=== PATIENT | female | born 1970 | race Caucasian/White ===

== ENCOUNTER 2024-03-02 05:50 | Inpatient (IN) | payer BC ==
[~2024-03-02] VITALS: Ht 185.4 cm; Wt 88.0 kg
[2024-03-02] VITALS (33 sets, daily range): BP systolic 99–166; BP diastolic 48–99; PULSE 63–97; RESP 0–19; TEMP 97.5–98.8; O2SAT 93–100
[~2024-03-02 05:50] MED LIST: NO HOME MEDS
[2024-03-02] MEDS ORDERED: ketorolac trometh 30MG/ML vial 30 MG/ML VIAL ONE (06:02)
[2024-03-02] MEDS ORDERED: BUPIVACAINE/MELOXICAM 14 ML VIAL IL ONE (06:03)
[2024-03-02] MEDS ORDERED: tranexamic acid 100mg/ml inj. ONE (06:03)
[2024-03-02] MEDS ORDERED: ROPIVAcaine 0.5% (5mg/ml) 30ml vial ONE (06:03)
[2024-03-02] MEDS: famotidine 20mg tablet PO ONE (06:23)
[2024-03-02] MEDS: ringers solution, lacted 1,000 ML IV SCH ×2 (06:24→08:41)
[2024-03-02] MEDS: tranexamic acid 650mg tablet PO ONE (06:24)
[2024-03-02] MEDS ORDERED: fentaNYL /PF 50mcg/ml 5ml ampule ONE (06:34)
[2024-03-02] MEDS ORDERED: MIDAZolam 1 MG/ML 5ML VIAL ONE (06:34)
[2024-03-02] MEDS ORDERED: dexamethasone sod phosphate 4mg/ml inj. ONE (06:35)
[2024-03-02] MEDS ORDERED: LIDOcaine 2% (20mg/ml) 5ml vial ONE (06:35)
[2024-03-02] MEDS ORDERED: sevoflurane 250ml liquid IH ONE (06:35)
[2024-03-02] MEDS ORDERED: propofol inj 20 ML IV ONE ×2 (06:35→07:05)
[2024-03-02 06:37] LABS: BASOPHILS # (AUTO) 0.1 X10'3 (0-0.2); BASOPHILS % (AUTO) 0.7 % (0-1); EOSINOPHILS # (AUTO) 0.3 X10'3 (0-0.9); EOSINOPHILS % (AUTO) 3.2 % (0-6); LYMPHOCYTES # (AUTO) 1.5 X10'3 (1.1-4.8); LYMPHOCYTES % (AUTO) 19.4 % (21-51); MEAN CORPUSCULAR HEMOGLOBIN 29.8 PG (27.0-31.0); MEAN CORPUSCULAR VOLUME 87.7 FL (78-98); MEAN PLATELET VOLUME 7.3 FL (7.4-10.4); MONOCYTES # (AUTO) 0.5 X10'3 (0-0.9); MONOCYTES % (AUTO) 5.9 % (2-12); NEUTROPHILS # (AUTO) 5.5 X10'3 (1.8-7.7); NEUTROPHILS % (AUTO) 70.8 % (42-75); PRE OP HEMATOCRIT 39.7 % (35.0-45.0); PRE OP HEMOGLOBIN 13.5 g/dL (12.0-16.0); PRE OP PLATELET COUNT 323 X10'3 (140-440); PRE OP WHITE BLOOD COUNT 7.8 10'3 (4.8-10.8); RED BLOOD COUNT 4.52 X10'6 (4.20-5.60); RED CELL DISTRIBUTION WIDTH 12.9 % (11.5-14.5)
[2024-03-02] MEDS ORDERED: ondansetron/PF 4mg/2ml inj ONE (06:50)
[2024-03-02 06:55] LABS: ALBUMIN 3.8 G/DL (3.4-5.0); ALKALINE PHOSPHATASE 117 IU/L (46-116); BLOOD UREA NITROGEN 17 MG/DL (7-18); BUN/CREATININE RATIO 19.8 (10.0-20.0); CALCIUM 9.3 MG/DL (8.5-10.1); CHLORIDE 107 MMOL/L (99-107); CREATININE 0.86 MG/DL (0.40-0.90); PRE OP ALT 26 U/L (30-65); PRE OP ANION GAP 9 (8-16); PRE OP AST 16 U/L (10-37); PRE OP BILIRUB, TOTAL 0.4 MG/DL (0.0-1.0); PRE OP GLUCOSE 109 MG/DL (70-104); PRE OP POTASSIUM 3.8 MMOL/L (3.4-5.1); PRE OP SODIUM 144 MMOL/L (135-145); TOTAL CARBON DIOXIDE 28.4 MMOL/L (24-32); TOTAL PROTEIN 7.6 G/DL (6.4-8.2); eCRCL 88 ML/MIN; eGFR 69 ML/MIN
[2024-03-02] MEDS ORDERED: vancomycin 1,000mg inj ONE ×4 (06:55→07:20)
[2024-03-02] MEDS ORDERED: ceFAZolin 1000mg inj ONE ×2 (06:55→07:09)
[2024-03-02] MEDS ORDERED: BUPIVACAINE liposomal/PF 13.3 MG/ML vial IM ONE (06:58)
[2024-03-02] MEDS ORDERED: BUPIVAcaine 0.5% inj/PF 30 ML ONE (06:58)
[2024-03-02] MEDS ORDERED: OXYC-658 PO (07:07)
[2024-03-02] MEDS ORDERED: IBUP-1985 PO (07:08)
[2024-03-02] MEDS ORDERED: acetaminophen 1,000mg/100ml IV 100 ML IV ONE (07:22)
[2024-03-02] MEDS: ROPIVAcaine 0.5% (5mg/ml) 30ml vial IJ ONE (07:30)
[2024-03-02] MEDS ORDERED: hydrALAZINE 20mg/ml inj. IV PRN (07:50)
[2024-03-02] MEDS ORDERED: morphine 2 MG/ML inj. syringe IV PRN (07:50)
[2024-03-02] MEDS ORDERED: ondansetron/PF 4mg/2ml inj IV PRN ×2 (07:50→08:30)
[2024-03-02] MEDS ORDERED: labetalol 20mg/4ml (5mg/ml) syringe IV PRN (07:50)
[2024-03-02] MEDS ORDERED: fentaNYL/PF 50MCG/1 ML 2ML syringe IV PRN ×2 (07:50)
[2024-03-02 08:18] LABS: APPEARANCE,SYNOVIAL FLUID CLOUDY; COLOR,SYNOVIAL FLUID RED; SYN WBC 975 /CU MM (0-200)
[2024-03-02 08:19] LABS: LYMPHOCYTES,SYNOVIAL FLUID 6 % (0-75); MONOCYTES,SYNOVIAL FLUID 10 % (0-0); NEUTROPHILS,SYNOVIAL FLUID 84 % (0-25); SYN RBC 13775 /CU MM (0)
[2024-03-02] MEDS ORDERED: naloxone 0.4 mg/ml inj IV PRN (08:30)
[2024-03-02] MEDS ORDERED: bisacodyl 10mg suppository rectal RC PRN (08:30)
[2024-03-02] MEDS ORDERED: diphenhydrAMINE 25mg capsule PO PRN (08:30)
[2024-03-02] MEDS ORDERED: magnesium hydroxide 30ml (MOM) UD suspension PO PRN (08:30)
[2024-03-02] MEDS ORDERED: acetaminophen 325mg tablet PO PRN (08:30)
[2024-03-02] MEDS ORDERED: HYDROmorphone inj. 0.5 MG/0.5 ML DISP.SYRIN IV PRN (08:30)
[2024-03-02] MEDS: morphine 4 MG/ML inj SYRINge IV PRN (08:49)
[2024-03-02] MEDS: oxyCODONE IR 5mg (immed. release) tablet PO PRN ×2 (11:47→16:16)
[2024-03-02] MEDS ORDERED: non-formulary drug (Ibuprofen 1 TAB) PO SCH (13:00)
[2024-03-02] MEDS: potassium cl 20mEq in 1/2 NS 1,000 ML IV SCH (15:35)
[2024-03-02] MEDS: acetaminophen 325mg tablet PO SCH (15:36)
[2024-03-02] MEDS: ceFAZolin/D5W- 1GM premix 50 ML IV SCH (16:15)
[2024-03-02] MEDS: sennosides 8.6mg tablet PO SCH (21:30)
[2024-03-02] MEDS: VANCOMYCIN 1GM 200ML H20 (PEG) 200 ML IV SCH (21:31)
[2024-03-03] VITALS (8 sets, daily range): BP systolic 126–150; BP diastolic 76–88; PULSE 63–76; RESP 15–16; TEMP 97.8–98.6; O2SAT 93–99
[2024-03-03 07:27] LABS: BASOPHILS % (AUTO) 0.6 % (0-1); EOSINOPHILS # (AUTO) 0.2 X10'3 (0-0.9); HEMATOCRIT 33.5 % (35.0-45.0); HEMOGLOBIN 11.4 g/dl (12.0-16.0); LYMPHOCYTES # (AUTO) 2.1 X10'3 (1.1-4.8); LYMPHOCYTES % (AUTO) 29.3 % (21-51); MEAN CORPUSCULAR HEMOGLOBIN 29.9 PG (27.0-31.0); MEAN CORPUSCULAR HGB CONC 33.8 g/dL (33.0-36.5); MEAN CORPUSCULAR VOLUME 88.4 FL (78-98); MEAN PLATELET VOLUME 7.3 FL (7.4-10.4); MONOCYTES # (AUTO) 0.4 X10'3 (0-0.9); MONOCYTES % (AUTO) 5.8 % (2-12); NEUTROPHILS # (AUTO) 4.3 X10'3 (1.8-7.7); NEUTROPHILS % (AUTO) 61.3 % (42-75); PLATELET COUNT 278 X10'3 (140-440); RED CELL DISTRIBUTION WIDTH 12.9 % (11.5-14.5)
[2024-03-03 07:44] LABS: CHLORIDE 106 MMOL/L (99-107); POTASSIUM 3.7 MMOL/L (3.5-5.1); SODIUM 140 MMOL/L (135-145)
[2024-03-03 07:45] LABS: ANION GAP 9 (8-16); TOTAL CARBON DIOXIDE 25.5 MMOL/L (24-32)
[2024-03-03] MEDS: aspirin 325mg tablet PO SCH (07:47)
[2024-03-03] MEDS: HYDROmorphone 1 mg/ml syringe IV PRN (07:48)
[2024-03-03] MEDS ORDERED: VANCOMYCIN 1GM 200ML H20 (PEG) 200 ML IV SCH (10:00)
[2024-03-03] MEDS: vancomycin/NS 1 GM ADD-VANTAGE 250 ML IV SCH (10:58)
[2024-03-03] MEDS: ceFAZolin/D5W- 1GM premix 50 ML IV SCH (16:16)
[2024-03-03] MEDS: celeCOXIB 100mg capsule PO SCH (21:16)
[2024-03-03] MEDS: diphenhydrAMINE 25mg capsule PO PRN (21:16)
[2024-03-04 06:00] VITALS: BP 138/78; PULSE 74; RESP 16; TEMP 97.7; O2SAT 98
[2024-03-04 07:22] LABS: BASOPHILS % (AUTO) 0.9 % (0-1); EOSINOPHILS # (AUTO) 0.4 X10'3 (0-0.9); EOSINOPHILS % (AUTO) 7.6 % (0-6); HEMATOCRIT 31.9 % (35.0-45.0); HEMOGLOBIN 10.9 g/dl (12.0-16.0); LYMPHOCYTES # (AUTO) 1.4 X10'3 (1.1-4.8); MEAN CORPUSCULAR HEMOGLOBIN 30.1 PG (27.0-31.0); MEAN CORPUSCULAR HGB CONC 34.3 g/dL (33.0-36.5); MEAN CORPUSCULAR VOLUME 87.8 FL (78-98); MEAN PLATELET VOLUME 7.3 FL (7.4-10.4); MONOCYTES # (AUTO) 0.4 X10'3 (0-0.9); MONOCYTES % (AUTO) 6.5 % (2-12); NEUTROPHILS # (AUTO) 3.4 X10'3 (1.8-7.7); PLATELET COUNT 251 X10'3 (140-440); RED BLOOD COUNT 3.63 X10'6 (4.20-5.60); WHITE BLOOD COUNT 5.6 X10'3 (4.5-11.0)
[2024-03-04 10:00] VITALS: BP 140/85; PULSE 71; RESP 16; TEMP 98.6; O2SAT 97
[2024-03-04] MEDS: ceFAZolin 2gm in dextrose, iso 50 ML IV SCH (16:29)
[2024-03-04 18:00] VITALS: BP 133/70; PULSE 83; RESP 16; TEMP 97.7; O2SAT 100
[2024-03-04] MEDS ORDERED: acetaminophen 325mg tablet PO PRN (18:20)
[2024-03-04] MEDS ORDERED: VANCOMYCIN LEVEL IV ONE (21:30)
[2024-03-04 21:41] LABS: ALANINE AMINOTRANSFERASE 18 U/L (12-78); ALBUMIN 3.1 G/DL (3.4-5.0); ALBUMIN/GLOBULIN RATIO 0.9 (1.1-1.5); ALKALINE PHOSPHATASE 112 IU/L (46-116); ANION GAP 6 (8-16); ASPARTATE AMINO TRANSFERASE 14 U/L (10-37); BILIRUBIN,TOTAL 0.2 MG/DL (0.1-1.0); BLOOD UREA NITROGEN 19 MG/DL (7-18); BUN/CREATININE RATIO 22.4 (10.0-20.0); CALCIUM 8.9 MG/DL (8.5-10.1); CHLORIDE 106 MMOL/L (99-107); CREATININE 0.85 MG/DL (0.40-0.90); GLUCOSE 110 MG/DL (70-104); SODIUM 141 MMOL/L (135-145); TOTAL CARBON DIOXIDE 28.7 MMOL/L (24-32); TOTAL PROTEIN 6.4 G/DL (6.4-8.2); eCRCL 89 ML/MIN; eGFR 69 ML/MIN
[2024-03-04 22:00] VITALS: BP 118/75; PULSE 68; RESP 16; TEMP 97.6; O2SAT 96
[2024-03-05 06:00] VITALS: BP 143/65; PULSE 67; RESP 14; TEMP 97.5; O2SAT 96
[2024-03-05 06:35] LABS: BASOPHILS % (AUTO) 0.8 % (0-1); EOSINOPHILS # (AUTO) 0.4 X10'3 (0-0.9); EOSINOPHILS % (AUTO) 7.8 % (0-6); HEMATOCRIT 37.2 % (35.0-45.0); HEMOGLOBIN 12.5 g/dl (12.0-16.0); LYMPHOCYTES # (AUTO) 1.5 X10'3 (1.1-4.8); LYMPHOCYTES % (AUTO) 26.9 % (21-51); MEAN CORPUSCULAR HEMOGLOBIN 29.5 PG (27.0-31.0); MEAN CORPUSCULAR HGB CONC 33.5 g/dL (33.0-36.5); MEAN CORPUSCULAR VOLUME 88.1 FL (78-98); MEAN PLATELET VOLUME 7.1 FL (7.4-10.4); MONOCYTES # (AUTO) 0.5 X10'3 (0-0.9); MONOCYTES % (AUTO) 8.4 % (2-12); NEUTROPHILS # (AUTO) 3.1 X10'3 (1.8-7.7); NEUTROPHILS % (AUTO) 56.1 % (42-75); PLATELET COUNT 283 X10'3 (140-440); RED BLOOD COUNT 4.23 X10'6 (4.20-5.60); RED CELL DISTRIBUTION WIDTH 12.8 % (11.5-14.5); WHITE BLOOD COUNT 5.5 X10'3 (4.5-11.0)
[2024-03-05] MEDS: rifampin 300mg capsule PO SCH (08:29)
[2024-03-05 10:00] VITALS: BP 117/58; PULSE 76; RESP 16; TEMP 97.3; O2SAT 96
[2024-03-05 18:00] VITALS: BP 140/75; PULSE 83; RESP 14; TEMP 98.2; O2SAT 98
[2024-03-05 20:00] VITALS: RESP 14; O2SAT 98
[2024-03-05 22:00] VITALS: BP 125/68; PULSE 106; RESP 15; TEMP 99.7; O2SAT 95
[2024-03-06 06:00] VITALS: BP 108/69; PULSE 67; RESP 14; TEMP 96.7; O2SAT 97
[2024-03-06 06:33] LABS: ALANINE AMINOTRANSFERASE 28 U/L (12-78); ALBUMIN 2.8 G/DL (3.4-5.0); ALBUMIN/GLOBULIN RATIO 0.8 (1.1-1.5); ALKALINE PHOSPHATASE 116 IU/L (46-116); ANION GAP 7 (8-16); ASPARTATE AMINO TRANSFERASE 31 U/L (10-37); BILIRUBIN,TOTAL 0.6 MG/DL (0.1-1.0); BLOOD UREA NITROGEN 15 MG/DL (7-18); BUN/CREATININE RATIO 19.2 (10.0-20.0); CALCIUM 8.8 MG/DL (8.5-10.1); CHLORIDE 105 MMOL/L (99-107); CREATININE 0.78 MG/DL (0.40-0.90); GLUCOSE 116 MG/DL (70-104); POTASSIUM 4.2 MMOL/L (3.5-5.1); SODIUM 138 MMOL/L (135-145); TOTAL CARBON DIOXIDE 26.2 MMOL/L (24-32); TOTAL PROTEIN 6.1 G/DL (6.4-8.2); eCRCL 97 ML/MIN; eGFR 77 ML/MIN
[2024-03-06 10:00] VITALS: BP 118/66; PULSE 84; RESP 16; TEMP 97.8; O2SAT 97
[2024-03-06 18:00] VITALS: BP 122/96; PULSE 74; RESP 18; TEMP 98.1; O2SAT 98
[2024-03-06 20:00] VITALS: RESP 18; O2SAT 98
[2024-03-06 22:02] VITALS: BP 130/75; PULSE 77; RESP 13; TEMP 98.5; O2SAT 99
[2024-03-06] MEDS ORDERED: hydrocortisone 1% cream 28gm TP PRN (23:50)
[2024-03-07 02:18] LABS: ALANINE AMINOTRANSFERASE 78 U/L (12-78); ALBUMIN/GLOBULIN RATIO 0.9 (1.1-1.5); ALKALINE PHOSPHATASE 153 IU/L (46-116); ANION GAP 10 (8-16); ASPARTATE AMINO TRANSFERASE 56 U/L (10-37); BILIRUBIN,TOTAL 0.4 MG/DL (0.1-1.0); BLOOD UREA NITROGEN 16 MG/DL (7-18); BUN/CREATININE RATIO 23.5 (10.0-20.0); CALCIUM 9.2 MG/DL (8.5-10.1); CHLORIDE 104 MMOL/L (99-107); CREATININE 0.68 MG/DL (0.40-0.90); GLUCOSE 119 MG/DL (70-104); SODIUM 141 MMOL/L (135-145); TOTAL CARBON DIOXIDE 26.8 MMOL/L (24-32); TOTAL PROTEIN 6.2 G/DL (6.4-8.2); eCRCL 111 ML/MIN; eGFR 90 ML/MIN
[2024-03-07 06:00] VITALS: BP 113/68; PULSE 76; RESP 14; TEMP 97.7; O2SAT 98
[2024-03-07 10:00] VITALS: BP 124/77; PULSE 88; RESP 18; TEMP 98.4; O2SAT 99
== END 2024-03-07 13:55 | disposition home or self-care (01) | DRG 464 ==
LOC: OR 05:50 → PACU 08:33 → ORTHO 4S 13:55
PROVIDERS: ADMIT Orthopaedic Surgery; ATTEND Orthopaedic Surgery
PROC: 0JBP0ZZ Excision of Left Lower Leg Subcutaneous Tissue and Fascia, Open Approach (ICD-10-PCS; 2024-03-02)
PROC: 0SPD08Z Removal of Spacer from Left Knee Joint, Open Approach (ICD-10-PCS; 2024-03-02)
PROC: 3E0U029 Introduction of Other Anti-infective into Joints, Open Approach (ICD-10-PCS; 2024-03-02)
PROC: 3E0T3BZ Introduction of Anesthetic Agent into Peripheral Nerves and Plexi, Percutaneous Approach (ICD-10-PCS; 2024-03-02)
PROC: 0SHD08Z Insertion of Spacer into Left Knee Joint, Open Approach (ICD-10-PCS; principal; 2024-03-02 06:35)
PROC: 02HV33Z Insertion of Infusion Device into Superior Vena Cava, Percutaneous Approach (ICD-10-PCS; 2024-03-06)
PROC: B548ZZA Ultrasonography of Superior Vena Cava, Guidance (ICD-10-PCS; 2024-03-06)
DX: T84.53XA Infection and inflammatory reaction due to internal right knee prosthesis, initial encounter (principal); T81.31XA Disruption of external operation (surgical) wound, not elsewhere classified, initial encounter; T81.329A Deep disruption or dehiscence of operation wound, unspecified, initial encounter; B95.61 Methicillin susceptible Staphylococcus aureus infection as the cause of diseases classified elsewhere; Y83.1 Surgical operation with implant of artificial internal device as the cause of abnormal reaction of the patient, or of later complication, without mention of misadventure at the time of the procedure; Y92.89 Other specified places as the place of occurrence of the external cause
CPT/HCPCS: 36569; Z7506; Z7508; 36415; 76942; 80051; 80053; 82948; 85025; 87015; 87070; 87075; 87077; 87081; 87186; 89051; 97110; 97116; 97161; 97530; A4618; A6212; A6258; A6449; A7000; C1713; C1751; C1776; C9290; G0378; J0131; J0690; J1100; J1171; J1885; J2003; J2250; J2270; J2405; J2704; J2795; J3010; J3370; J3372; J3480; J3490; J7030; J7040; J7120; Q0163